=== PATIENT | female | born 1985 | race Caucasian/White ===

== ENCOUNTER 2020-03-04 15:25 | Observation (INO) | payer BC ==
[~2020-03-04] VITALS: Ht 167.6 cm; Wt 62.3 kg
[2020-03-04 16:00] VITALS: BP 116/74
[2020-03-04] MEDS ORDERED: LEVO50TA PO (16:31)
[2020-03-04] MEDS ORDERED: LIOT5TAB11 BC (16:34)
[2020-03-04] MEDS ORDERED: NEWBORN KIT ONE (17:09)
== END 2020-03-04 18:30 | disposition home or self-care (01) ==
LOC: LDOP 15:25 → LDIP 16:14
PROVIDERS: ADMIT Obstetrics & Gynecology Maternal & Fetal Medicine; ATTEND Obstetrics & Gynecology Maternal & Fetal Medicine
DX: O62.9 Abnormality of forces of labor, unspecified (principal); O99.283 Endocrine, nutritional and metabolic diseases complicating pregnancy, third trimester; E06.3 Autoimmune thyroiditis; O36.5930 Maternal care for other known or suspected poor fetal growth, third trimester, not applicable or unspecified; Z22.330 Carrier of Group B streptococcus; Z3A.38 38 weeks gestation of pregnancy
CPT/HCPCS: 59025; G0378

== ENCOUNTER 2020-03-04 20:44 | Inpatient (IN) | payer BC ==
[~2020-03-04] VITALS: Ht 167.6 cm; Wt 62.3 kg
[~2020-03-04 20:44] MED LIST: LEVO50TA PO; LIOT5TAB11 BC
[2020-03-04] MEDS ORDERED: FENTANYL PF 100 MCG/2ML IV PRN (21:00)
[2020-03-04] MEDS ORDERED: METOCLOPRAMIDE 5 MG/ML, 2ML IVPush PRN (21:00)
[2020-03-04] MEDS ORDERED: SODIUM CITRATE/CITRIC ACID 30 ML UDC PO PRN (21:00)
[2020-03-04] MEDS ORDERED: OXYTOCIN 30U/ 0.9% NaCL 500ML 500 ML IV ONE (21:00)
[2020-03-04] MEDS ORDERED: ONDANSETRON 2MG/ML, 2ML IVPush PRN ×2 (21:00→22:00)
[2020-03-04] MEDS ORDERED: TERBUTALINE 1 MG/ML, 1ML SQ PRN (21:00)
[2020-03-04] MEDS ORDERED: CALCIUM CARBONATE 500 MG TAB.CHEW PO PRN (21:00)
[2020-03-04] MEDS ORDERED: TERBUTALINE 1 MG/ML, 1ML IVPush PRN (21:00)
[2020-03-04] MEDS ORDERED: PENICILLIN GK 5,000,000 UNITS in DEXTROSE 5% 100 ML IVPB ONE (21:00)
[2020-03-04] MEDS ORDERED: D5%-LACTATED RINGERS 1,000 ML IV SCH (21:00)
[2020-03-04] MEDS ORDERED: FENTANYL PF 100 MCG/2ML IVPush PRN (21:00)
[2020-03-04] MEDS: LACTATED RINGERS 1,000 ML IV SCH (21:05)
[2020-03-04] MEDS ORDERED: OXYTOCIN 30U/ 0.9% NaCL 500ML 500 ML ONE (21:06)
[2020-03-04 21:19] VITALS: BP 129/66
[2020-03-04 21:25] LABS: BASOPHILS % (AUTO) 0 % (0-1); EOSINOPHILS % (AUTO) 0 % (1-7); LYMPHOCYTES % (AUTO) 12 % (22-44); MEAN CORPUSCULAR HGB CONC 33.5 g/dL (32.4-35.8); MEAN PLATELET VOLUME 9.5 fL (7.4-10.4); MONOCYTES % (AUTO) 7 % (2-9); NEUTROPHILS % (AUTO) 81 % (42-75); PLATELET COUNT 184 x10^3/uL (130-400); RED BLOOD COUNT 3.81 x10^6/uL (3.82-5.3); RED CELL DISTRIBUTION WIDTH 14.9 % (9.6-15.2)
[2020-03-04] MEDS ORDERED: NEWBORN KIT ONE (21:30)
[2020-03-04] MEDS ORDERED: PENICILLIN GK 2,500,000 UNITS in DEXTROSE 5% 100 ML IVPB SCH (21:30)
[2020-03-04] MEDS ORDERED: MISOPROSTOL 200 MCG TABLET ONE (21:31)
[2020-03-04] MEDS ORDERED: LIDOCAINE 1%, 20ML ONE (21:31)
[2020-03-04] MEDS ORDERED: FENTANYL/BUPIV./NS/PF 250 ML EPIDCONT ONE (21:40)
[2020-03-04] MEDS ORDERED: BUPIVACAINE 0.25% ONE (21:40)
[2020-03-04 21:57] LABS: MD SCAN
[2020-03-04] MEDS ORDERED: LACTATED RINGERS 1,000 ML IV SCH (22:00)
[2020-03-04] MEDS ORDERED: DIPHENHYDRAMINE 50 MG/ML, 1ML IVPush PRN (22:00)
[2020-03-04] MEDS ORDERED: EPHEDRINE 50 MG/ML, 1ML IVPush PRN (22:00)
[2020-03-04] MEDS ORDERED: LACTATED RINGERS 1,000 ML IVBOLUS PRN (22:00)
[2020-03-04] MEDS ORDERED: FENTANYL/BUPIV./NS/PF 250 ML EPIDCONT SCH (22:00)
[2020-03-04] MEDS ORDERED: NALOXONE 0.4 MG/ML, 1ML IVPush PRN (22:00)
[2020-03-05] MEDS ORDERED: METHYLERGONOVINE 0.2 MG/ML IM PRN (00:30)
[2020-03-05] MEDS ORDERED: OXYcodone/APAP 5/325MG TABLET PO PRN ×2 (00:30)
[2020-03-05] MEDS ORDERED: METOCLOPRAMIDE 5 MG/ML, 2ML IV PRN (00:30)
[2020-03-05] MEDS ORDERED: CARBOPROST TROMETHAMINE 250 MCG/ML, 1ML IM PRN (00:30)
[2020-03-05] MEDS ORDERED: ONDANSETRON 2MG/ML, 2ML IV PRN (00:30)
[2020-03-05] MEDS ORDERED: SIMETHICONE 80 MG CHEW TAB PO PRN (00:30)
[2020-03-05] MEDS ORDERED: CALCIUM CARBONATE 500 MG TAB.CHEW PO PRN (00:30)
[2020-03-05] MEDS ORDERED: ACETAMINOPHEN 325 MG TABLET PO PRN ×3 (00:30)
[2020-03-05] MEDS ORDERED: MISOPROSTOL 200 MCG TABLET PR PRN (00:30)
[2020-03-05] MEDS ORDERED: OXYTOCIN 30U/ 0.9% NaCL 500ML 500 ML ONE (00:41)
[2020-03-05] MEDS: LACTATED RINGERS 1,000 ML IV SCH (00:44)
[2020-03-05 02:40] VITALS: BP 97/59
[2020-03-05 05:50] VITALS: BP 104/65
[2020-03-05 07:41] VITALS: BP 103/65
[2020-03-05 07:45] LABS: BASOPHILS % (AUTO) 1 % (0-1); EOSINOPHILS % (AUTO) 0 % (1-7); LYMPHOCYTES % (AUTO) 10 % (22-44); MEAN CORPUSCULAR HEMOGLOBIN 33.5 pg (27.0-34.8); MEAN CORPUSCULAR HGB CONC 33.4 g/dL (32.4-35.8); MEAN PLATELET VOLUME 9.2 fL (7.4-10.4); MONOCYTES % (AUTO) 5 % (2-9); NEUTROPHILS % (AUTO) 85 % (42-75); PLATELET COUNT 176 x10^3/uL (130-400); RED BLOOD COUNT 3.54 x10^6/uL (3.82-5.3); RED CELL DISTRIBUTION WIDTH 14.8 % (9.6-15.2)
[2020-03-05 08:06] LABS: MD SCAN
[2020-03-05] MEDS: PRENATAL VIT/IRON/FA 1 EACH TABLET PO SCH (08:45)
[2020-03-05] MEDS: DOCUSATE 100 MG CAPSULE PO PRN ×2 (09:07→19:55)
[2020-03-05 11:46] VITALS: BP 103/64
[2020-03-05 16:30] VITALS: BP 102/68
[2020-03-05 19:40] VITALS: BP 107/68
[2020-03-06] MEDS: IBUPROFEN 600 MG TABLET PO PRN ×3 (01:37→14:44)
[2020-03-06 07:50] VITALS: BP 105/69
[2020-03-06] MEDS: DOCUSATE 100 MG CAPSULE PO PRN (08:01)
[2020-03-06] MEDS: PRENATAL VIT/IRON/FA 1 EACH TABLET PO SCH (08:02)
[2020-03-06] MEDS ORDERED: DOCU-131 PO (11:32)
[2020-03-06] MEDS ORDERED: IBUP-1222 PO (11:33)
== END 2020-03-06 17:01 | disposition home or self-care (01) | DRG 807 ==
LOC: LDOP 20:44 → LDIP 21:00 → 2NW 03-05 02:26
PROVIDERS: ADMIT Obstetrics & Gynecology Maternal & Fetal Medicine; ATTEND Obstetrics & Gynecology Maternal & Fetal Medicine
PROC: 10E0XZZ Delivery of Products of Conception, External Approach (ICD-10-PCS; principal; 2020-03-05)
PROC: 0KQM0ZZ Repair Perineum Muscle, Open Approach (ICD-10-PCS; 2020-03-05)
PROC: 3E0R3BZ Introduction of Anesthetic Agent into Spinal Canal, Percutaneous Approach (ICD-10-PCS; 2020-03-05)
PROC: 00HU33Z Insertion of Infusion Device into Spinal Canal, Percutaneous Approach (ICD-10-PCS; 2020-03-05)
DX: O99.824 Streptococcus B carrier state complicating childbirth (principal); Z37.0 Single live birth; O99.284 Endocrine, nutritional and metabolic diseases complicating childbirth; E06.3 Autoimmune thyroiditis; Z20.828 Contact with and (suspected) exposure to other viral communicable diseases; O70.1 Second degree perineal laceration during delivery; Z3A.38 38 weeks gestation of pregnancy; Z88.5 Allergy status to narcotic agent
CPT/HCPCS: 36415; 85025; 86592; 86850; 86900; 87635; G0378; J2540; J2590; J7120